=== PATIENT | male | born 1960 | race Caucasian/White ===

== ENCOUNTER 2024-01-21 21:02 | Outpatient (CLI) | payer OTHER, SELFPAY ==
--- NOTE | 2024-01-21 21:08 | XRR_ITS ---
PROCEDURE INFORMATION: Exam: XR Left Wrist Exam date and time: 01/21/2024 9:10 PM Age: 63 years old Clinical indication: Pain; Wrist; Left; Additional info: L hand pain TECHNIQUE: Imaging protocol: Radiologic exam of the left wrist. Views: 3 or more views. COMPARISON: CR (UP EX, ) 01/21/2024 9:10 PM FINDINGS: Bones/joints: Diffuse degenerative changes throughout the visualized osseous structures. Previous trauma at radial styloid. Suggestion of hooked osteophytes of the 2nd and 3rd metacarpal heads Soft tissues: Normal. XR/XR wrist LT min 3V* [id number] IMPRESSION: 1. Suggestion of hooked osteophytes at the 2nd and 3rd metacarpal heads which can be seen in hemochromatosis, CPPD, osteoarthritis, rheumatoid arthritis. 2. No further acute or aggressive osseous abnormality. 3. Diffuse osteoarthritis throughout the visualized structures.
--- NOTE | 2024-01-21 21:08 | XRR_ITS ---
PROCEDURE INFORMATION: Exam: XR Left Hand Exam date and time: 01/21/2024 9:10 PM Age: 63 years old Clinical indication: Pain; Hand; Left; Additional info: Left hand pain TECHNIQUE: Imaging protocol: Radiologic exam of the left hand. Views: 3 or more views. COMPARISON: CR (UP EXM, ) 01/21/2024 9:10 PM FINDINGS: Bones/joints: Sequela of prior trauma at the radial styloid. Multifocal degenerative changes throughout the visualized osseous structures. Soft tissues: Normal. XR/XR hand LT min 3V* [id number] IMPRESSION: 1. No acute or aggressive osseous findings. 2. Multifocal degenerative changes throughout the visualized osseous structures
== END 2024-01-21 21:03 | disposition home or self-care (01) ==
PROVIDERS: PCP Nurse Practitioner Family; Visit Provider Family Medicine
DX: M19.032 Primary osteoarthritis, left wrist (principal); M19.042 Primary osteoarthritis, left hand
CPT/HCPCS: 73110; 73130

== ENCOUNTER 2024-03-19 16:17 | Outpatient (CLI) | payer OTHER, SELFPAY ==
--- NOTE | 2024-03-19 16:22 | MR_ITS ---
WS: [id number] MRI HEAD WITHOUT CONTRAST TECHNIQUE: Sagittal T1, T2 axial, T2 axial FLAIR, axial and coronal T1 images, axial susceptibility w eighted imaging, axial diffusion weighted images, and coronal T2 images were obtained. CLINICAL INFORMATION: ANXIETY/MAJOR PERSONALITY CHANGE/MEMORY DEFICIT COMPARISON: None. FINDINGS: No evidence of restricted diffusion to suggest acute ischemia. Ventricular system basilar cisterns ar e patent. Mild small vessel changes. Mild parenchymal volume loss. Normal posterior fossa. Normal vas cular flow voids at the skull base. No extra-axial fluid collections. No evidence of mass or mass eff ect. Paranasal sinuses and mastoid air cells are well aerated. Mucosal thickening in the frontal sinuses a nd ethmoid air cells. Small retention cysts in the LEFT maxillary sinus. No hemosiderin on the suscep tibly weighted images. Normal optic chiasm and pituitary infundibulum. Mild symmetric atrophy tempora l lobes and hippocampal formations. No other suspicious findings. MR/MR head wo con* [id number] IMPRESSION: 1. No evidence of restricted diffusion to suggest acute ischemia. 2. Mild small vessel changes. Mild parenchymal volume loss. 3. No hemosiderin on susceptibility-weighted images. 4. Mild symmetric atrophy temporal lobes and hippocampal formations. 5. No other suspicious findings.
== END 2024-03-19 16:18 | disposition home or self-care (01) ==
LOC: RAD 16:17
PROVIDERS: PCP Nurse Practitioner Family; Visit Provider Family Medicine
DX: F41.9 Anxiety disorder, unspecified (principal); F32.9 Major depressive disorder, single episode, unspecified; F68.8 Other specified disorders of adult personality and behavior; R41.3 Other amnesia; J34.1 Cyst and mucocele of nose and nasal sinus; G31.9 Degenerative disease of nervous system, unspecified
CPT/HCPCS: 70551

== ENCOUNTER → 2024-07-06 10:38 | Outpatient (BNVA) | payer MEDICAID, SELFPAY | PROVIDERS: PCP Nurse Practitioner Family; Referring Provider Nurse Practitioner Family; Visit Provider Specialist | DX: R41.3 Other amnesia (principal); R03.0 Elevated blood-pressure reading, without diagnosis of hypertension; G30.9 Alzheimer's disease, unspecified; F02.80 Dementia in other diseases classified elsewhere, unspecified severity, without behavioral disturbance, psychotic disturbance, mood disturbance, and anxiety | CPT/HCPCS: 99204; 99205 ==